=== PATIENT | female | born 1935 | race African-American/Black ===

== ENCOUNTER → 2016-08-12 | Outpatient (CLI) | payer MEDICARE ==
--- NOTE | 2016-08-13 13:43 | MM ---
Reason for exam: screening (asymptomatic). Last mammogram was performed 1 year and 2 months ago. History: Patient is postmenopausal. Family history of breast cancer in sister at age 62. Physical Findings: A clinical breast exam by your physician is recommended on an annual basis and results should be correlated with mammographic findings. MG 3D Screening Mammo W/Cad Bilateral CC and MLO view(s) were taken. Prior study comparison: June 12, 2015, bilateral MG 3d screening mammo w/cad. May 24, 2014, bilateral MG screening mammo w CAD. No significant changes when compared with prior studies. ASSESSMENT: Benign, BI-RAD 2 RECOMMENDATION: Routine screening mammogram of both breasts in 1 year.
== END | disposition home or self-care (01) ==
LOC: RADMAMWWP 11:56
PROVIDERS: ATTEND Internal Medicine Geriatric Medicine
DX: Z12.31 Encounter for screening mammogram for malignant neoplasm of breast (principal)
CPT/HCPCS: 77063; G0202

== ENCOUNTER → 2016-10-02 | Outpatient (CLI) | payer MEDICARE ==
--- NOTE | 2016-10-02 09:56 | CT ---
EXAMINATION TYPE: CT angio chest DATE OF EXAM: 10/02/2016 COMPARISON: NONE HISTORY: left sided chest pressure CT DLP: 548 mGycm. Automated Exposure Control for Dose Reduction was Utilized. CONTRAST: CTA scan of the thorax is performed with IV Contrast, patient injected with 80 mL of Visipaque 320, p ulmonary embolism protocol. MIP Images are created on CT scanner and reviewed. FINDINGS: LUNGS: Some dependent atelectasis is seen in both lower lobes. There is additional linear scarring or atelectasis in the lateral left lower lobe extending to diaphragm. No concerning noncalcified parenc hymal nodule or mass is clearly identified bilaterally. Incidental note is made of 3 mm calcified nod ule right lower lobe superiorly on axial image 62. No pleural effusion or pneumothorax is seen bilate rally. Tracheobronchial tree is patent. There is deviation at level of aortic knob noted. MEDIASTINUM: There is satisfactory enhancement of the pulmonary artery and its branches, there is no CT evidence for pulmonary embolism. There are no greater than 1 cm hilar or mediastinal lymph nodes. No significant pericardial effusion is seen. Cardiomegaly is present. There is mild biatrial dilat ation. Main pulmonary artery measures 3.1 cm diameter on axial image 49, CT findings which may be ref lective of underlying pulmonary artery hypertension. Adjacent ascending aorta measures up to 3.2 cm i n diameter. There is mild calcified plaque in the visualized thoracic aorta with slightly more promin ent moderate eccentric plaque anterolaterally in the ascending aorta on axial image 48. There is some ill-defined fluid surrounding the ascending aorta along the anterior medial aspect to level of proxi mal arch. Suspect pericardial recess fluid. There is three-vessel origin from the aortic arch with to rtuous course and mild plaque. There is air-fluid level of proximal esophagus without obvious mass or stricture. OTHER: There is rim calcified 1.1 cm splenic artery aneurysm on axial image 128. Osseous structures a re demineralized. There is multilevel moderate to severe spurring in the spine. IMPRESSION: 1. Cardiomegaly without acute pulmonary process. Suspect underlying pulmonary artery hypertension. No significant finding is seen to account for patient's left-sided pain.
== END | disposition home or self-care (01) ==
LOC: RADCTMAIN 07:58
PROVIDERS: ATTEND Internal Medicine Geriatric Medicine
DX: R06.02 Shortness of breath (principal); I51.7 Cardiomegaly
CPT/HCPCS: 71275; Q9967

== ENCOUNTER → 2017-01-06 | Outpatient (CLI) | payer MEDICARE ==
--- NOTE | 2017-01-06 10:03 | CT ---
EXAMINATION TYPE: CT abdomen wo con DATE OF EXAM: 01/06/2017 COMPARISON: NONE HISTORY: 81-year-old female with abdominal pain TECHNIQUE: Contiguous axial scanning of the abdomen without IV contrast. Coronal and sagittal reconst ructions performed. CT DLP: 272.10 mGycm Automated exposure control for dose reduction was used. FINDINGS: The heart is upper limits of normal in size without significant pericardial effusion. Strandy atelect asis at the lower lungs. No pleural effusion. Noncontrast appearance of the liver, gallbladder, adrenal glands, kidneys, spleen, and pancreas show no gross abnormality. No dilated small bowel, free fluid, or free air. Colonic diverticulosis with mild to moderate stool burden. No pericolonic inflammatory change. No mesenteric or retroperitoneal lymphadenopathy. Scattered mild atherosclerotic calcifications within the abdominal aorta. No aneurysm. Bones: Grade 1 anterolisthesis at L4-L5 secondary to hypertrophic facet arthropathy. Degenerative dis c disease T9-T10. IMPRESSION: 1. DIFFUSE COLONIC DIVERTICULOSIS. THERE IS MILD TO MODERATE STOOL BURDEN. NO EVIDENCE FOR ACUTE DIVE RTICULITIS. 2. 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
== END | disposition home or self-care (01) ==
LOC: RADCTMAIN 08:44
PROVIDERS: ATTEND Internal Medicine Geriatric Medicine
DX: K57.30 Diverticulosis of large intestine without perforation or abscess without bleeding (principal); R10.9 Unspecified abdominal pain
CPT/HCPCS: 74150

== ENCOUNTER → 2017-09-22 | Outpatient (CLI) | payer MEDICARE ==
--- NOTE | 2017-09-23 12:13 | MM ---
Reason for exam: screening (asymptomatic). Last mammogram was performed 1 year and 1 month ago. History: Patient is postmenopausal. Family history of breast cancer in sister at age 62. Physical Findings: A clinical breast exam by your physician is recommended on an annual basis and results should be correlated with mammographic findings. MG Screening Mammo w CAD Bilateral CC and MLO view(s) were taken. Prior study comparison: August 12, 2016, bilateral MG 3d screening mammo w/cad. June 12, 2015, bilateral MG 3d screening mammo w/cad. There are scattered fibroglandular densities. No suspicious abnormality. No significant changes when compared with prior studies. ASSESSMENT: Negative, BI-RAD 1 RECOMMENDATION: Routine screening mammogram of both breasts in 1 year.
== END | disposition home or self-care (01) ==
LOC: RADMAMWWP 13:08
PROVIDERS: ATTEND Internal Medicine Geriatric Medicine
DX: Z12.31 Encounter for screening mammogram for malignant neoplasm of breast (principal)
CPT/HCPCS: 77067

== ENCOUNTER → 2017-11-06 | Outpatient (CLI) | payer MEDICARE ==
--- NOTE | 2017-11-06 15:29 | CT ---
EXAMINATION TYPE: CT abdomen pelvis w con DATE OF EXAM: 11/06/2017 HISTORY: Left flank pain CT DLP: 1006mGycm Automated Exposure Control for Dose Reduction was Utilized. CONTRAST: CT scan of the abdomen and pelvis is performed with IV Contrast, patient injected with 80 mL of Isovu e 300. COMPARISON: CT abdomen January 06, 2017 FINDINGS: LUNG BASES: There is left basilar linear scarring. Cardiomegaly is redemonstrated. LIVER/GB: No significant abnormality is appreciated. PANCREAS: No significant abnormality is seen. SPLEEN: No significant abnormality is seen. ADRENALS: No significant abnormality is seen. KIDNEYS: No significant abnormality is seen. BOWEL: There is new small hiatal hernia. The oral contrast reaches level of cecum. There is no suspic ious small or large bowel dilatation. There is prominent diffuse colonic diverticulosis without convi ncing CT evidence for acute diverticulitis. Normal gas-filled appendix is seen from base of cecum. UTERUS/ADNEXA: Uterus is slightly retroverted in shape LYMPH NODES: No greater than 1cm abdominal or pelvic lymph nodes are appreciated. OSSEOUS STRUCTURES: There is slight grade 1 anterolisthesis of L4 on L5. There is mild to moderate di sc space narrowing L4-L5 level. There is more prominent facet arthropathy in the mid to lower lumbar spine noted. OTHER: No significant additional abnormality is seen. IMPRESSION: Prominent colonic diverticulosis redemonstrated without convincing CT evidence for acute diverticulitis. No new or acute finding identified to account for patient's symptoms.
== END | disposition home or self-care (01) ==
LOC: RADCTMAIN 13:10
PROVIDERS: ATTEND Internal Medicine Geriatric Medicine
DX: K57.30 Diverticulosis of large intestine without perforation or abscess without bleeding (principal)
CPT/HCPCS: 82565; 84520; 74177; 36415; Q9967

== ENCOUNTER → 2018-06-15 | Outpatient (CLI) | payer MEDICARE ==
--- NOTE | 2018-06-15 15:25 | XR ---
Right knee HISTORY: Trauma 2 days prior, right knee pain 3 views of the right knee No comparisons There is marginal spurring and joint space loss especially in the medial compartment. Spurring also p resent at the patellofemoral joint. Alignment and bone mineralization are maintained. Soft tissue hay cifications are likely vascular. There may be a small joint effusion. IMPRESSION: Osteoarthritis. No fracture or dislocation is evident. Knee MRI may be of benefit as anca cated.
== END | disposition home or self-care (01) ==
LOC: RADXRMAIN 14:32
PROVIDERS: ATTEND Internal Medicine
DX: M17.11 Unilateral primary osteoarthritis, right knee (principal)

== ENCOUNTER → 2018-11-15 | Outpatient (CLI) | payer MEDICARE ==
--- NOTE | 2018-11-16 13:45 | MM ---
Reason for exam: screening (asymptomatic). Last mammogram was performed 1 year and 2 months ago. History: Patient is postmenopausal. Family history of breast cancer in sister at age 62. Physical Findings: A clinical breast exam by your physician is recommended on an annual basis and results should be correlated with mammographic findings. MG Screening Mammo w CAD Bilateral CC and MLO view(s) were taken. Prior study comparison: September 22, 2017, bilateral MG screening mammo w CAD. August 12, 2016, bilateral MG 3d screening mammo w/cad. There are scattered fibroglandular densities. No significant changes when compared with prior studies. ASSESSMENT: Negative, BI-RAD 1 RECOMMENDATION: Routine screening mammogram of both breasts in 1 year.
== END | disposition home or self-care (01) ==
LOC: RADMAMWWP 14:05
PROVIDERS: ATTEND Internal Medicine Geriatric Medicine
DX: Z12.31 Encounter for screening mammogram for malignant neoplasm of breast (principal)
CPT/HCPCS: 77067

== ENCOUNTER → 2019-11-23 | Outpatient (CLI) | payer MEDICARE ==
--- NOTE | 2019-11-25 10:52 | MM ---
Reason for exam: screening (asymptomatic). Last mammogram was performed 1 year ago. History: Patient is postmenopausal. Family history of breast cancer in sister at age 62. Physical Findings: A clinical breast exam by your physician is recommended on an annual basis and results should be correlated with mammographic findings. MG 3D Screening Mammo W/Cad Bilateral CC and MLO view(s) were taken. Prior study comparison: November 15, 2018, bilateral MG screening mammo w CAD. September 22, 2017, bilateral MG screening mammo w CAD. There are scattered fibroglandular densities. No significant changes when compared with prior studies. ASSESSMENT: Benign, BI-RAD 2 RECOMMENDATION: Routine screening mammogram of both breasts in 1 year.
== END | disposition home or self-care (01) ==
LOC: RADMAMWWP 15:30
PROVIDERS: ATTEND Internal Medicine Geriatric Medicine
DX: Z12.31 Encounter for screening mammogram for malignant neoplasm of breast (principal)
CPT/HCPCS: 77063; 77067